=== PATIENT | female | born 2000 | race Caucasian/White ===

== ENCOUNTER 2020-04-01 03:45 | Emergency (ER) | payer MEDICAID, OTHER ==
[~2020-04-01] VITALS: Ht 154.9 cm; Wt 77.1 kg
[2020-04-01 03:55] VITALS: BP 127/65
--- NOTE | 2020-04-01 03:55 | NUR ---
TO TENT #01 AMBULATORY
--- NOTE | 2020-04-01 04:15 | NUR ---
SEEN AND EXAMINED BY GINI WITH ORDERS AND CARRIED OUT
--- NOTE | 2020-04-01 04:55 | NUR ---
SWAB DONE AND SENT TO LAB
[2020-04-01] MEDS ORDERED: KETOROLAC 60 MG/2 ML VIAL IM ONE (05:35)
[2020-04-01 05:50] VITALS: BP 127/65
== END 2020-04-01 05:50 | disposition home or self-care (01) ==
LOC: MED 03:45
DX: B34.9 Viral infection, unspecified (principal); R11.10 Vomiting, unspecified
CPT/HCPCS: 99283

== ENCOUNTER 2020-06-15 02:08 | Emergency (ER) | payer OTHER ==
[~2020-06-15] VITALS: Ht 154.9 cm; Wt 79.4 kg
[2020-06-15 02:11] VITALS: BP 142/98
--- NOTE | 2020-06-15 02:11 | NUR ---
TO BED AMBULATORY
--- NOTE | 2020-06-15 02:30 | NUR ---
SEEN AND EXAMINED BY GINI WITH ORDERS AND CARRIED OUT.
[2020-06-15] MEDS ORDERED: MORPHINE SULFATE 4 MG/ML SYR IVP ONE ×3 (02:35→04:30)
[2020-06-15] MEDS ORDERED: ONDANSETRON 4 MG/2 ML VIAL IVP ONE (02:35)
[2020-06-15] MEDS ORDERED: NACL 0.9% 1,000 ML IV ONE (02:35)
--- NOTE | 2020-06-15 02:35 | NUR ---
Blood for labwork drawn from [facility]. Patient tolerated [facility].
--- NOTE | 2020-06-15 02:36 | NUR ---
MEDICATED PER ERMDS ORDER, TOLERATED WELL.
[2020-06-15] MEDS ORDERED: PIPERACILLIN/TAZOBACTAM 3.375 GM in DEXTROSE 5% 50 ML IV ONE (02:45)
[2020-06-15 02:54] LABS: BASOPHILS % (AUTO) 0.3 % (0.0-2.0); EOSINOPHILS # (AUTO) 0.2 K/uL (0-0.4); EOSINOPHILS % (AUTO) 1.2 % (0.0-4.0); HEMATOCRIT 32.1 % (36-48); HEMOGLOBIN 10.1 g/dL (12.0-16.0); LYMPHOCYTES # (AUTO) 2.6 K/uL (2.5-16.5); LYMPHOCYTES % (AUTO) 18.3 % (20.5-51.1); MEAN CORPUSCULAR HEMOGLOBIN 20 pg (27-31); MEAN CORPUSCULAR HGB CONC 32 g/dL (33-37); MEAN CORPUSCULAR VOLUME 64.4 fL (80-94); MONOCYTES # (AUTO) 0.9 K/uL (0.8-1.0); MONOCYTES % (AUTO) 6.3 % (1.7-9.3); NEUTROPHILS # (AUTO) 10.6 K/uL (1.8-7.7); NEUTROPHILS % (AUTO) 73.9 % (42.2-75.2); PLATELET COUNT (AUTO) 219 K/uL (140-450); RED BLOOD CELL COUNT(AUTO) 4.98 MIL/uL (4.20-5.40); RED CELL DISTRIBUTION WIDTH 16.3 % (11.6-13.7); WHITE BLOOD COUNT (AUTO) 14.3 K/uL (4.8-10.8)
[2020-06-15 03:04] LABS: APPEARANCE,URINE HAZY (CLEAR); BILIRUBIN,URINE NEGATIVE (NEGATIVE); BLOOD, URINE 3+ (NEGATIVE); COLOR,URINE RED (YELLOW); LEUKOCYTE ESTERASE ,URINE TRACE (NEGATIVE); NITRITE, URINE NEGATIVE (NEGATIVE); PH,URINE 5.5 (5.0-9.0); UGLUCOSE NEGATIVE (NEGATIVE)
[2020-06-15 03:10] LABS: ALBUMIN 3.4 g/dL (3.4-5.0); ANION GAP 12.3 (8-16); CARBON DIOXIDE 24.2 mmol/L (21-32); CREATININE 0.5 mg/dL (0.6-1.3); POTASSIUM 3.5 mmol/L (3.5-5.1); TOTAL BILIRUBIN 0.4 mg/dL (0.0-1.0)
[2020-06-15] MEDS ORDERED: PIPERACILLIN/TAZOBACTAM 3.375 GM VIAL IV ONE (03:12)
[2020-06-15 03:18] LABS: RBC,URINE TOO NUMEROUS TO COUN /HPF (0-5); WBC,URINE 0-5 /HPF (0-5)
--- NOTE | 2020-06-15 03:25 | NUR ---
NASAL SWAB FOR TESSY SENT TO LAB
--- NOTE | 2020-06-15 04:30 | NUR ---
RECIVED REPORT FROM KAYCE CONTINUATION OF CARE.
--- NOTE | 2020-06-15 04:30 | NUR ---
Qasim medel in [facility] - 06/15/20 at 0717 by MEDFLDesmond GAVE REPORT TO CLIVE CACERES, TRANSFER OF CARE GIVEN.
--- NOTE | 2020-06-15 04:35 | NUR ---
PATIENT HAS C/O 01/21 PELVIC PAIN ERMD MADE AWARE AND GAVE NEW ORDERS. PATIENT REMAINS ON TAX PROCESSOR AND VSS.
--- NOTE | 2020-06-15 05:30 | NUR ---
PATIENT REPORTS PELVIC REDUCED FROM 10/10 TO 5/10 LOWER PELVIC PAIN. PATIENT REMAINS ON [employer]IST[employer] ATTORNEY. VSS. BED IS LOCKED AND IN LOWEST POSTION.
--- NOTE | 2020-06-15 05:50 | NUR ---
Patient to be transferred [place] [facility] Is being transferred due to INSURANCE. Receiving facility has accepting physician and available space. ER physician has signed transfer form. Patient or responsible alliance party has agreed to transfer and signed form. Patient belongings inventoried and will be sent with patient. Copy of nursing notes, lab reports, EKG, Physicians Orders and X-rays to be sent with patient. Report called to PRINCE CACERES at receiving facility. [facility] ambulance service has been called for transfer. ETA is [phone].
--- NOTE | 2020-06-15 07:09 | NUR ---
REPORT RECIEVED FROM MORRIS TY. TRANSFER OF CARE AT THIS TIME.
--- NOTE | 2020-06-15 07:17 | NUR ---
Qasim medel in [facility] - 06/15/20 at 0718 by CHEMA RECEIVED REPORT FROM KAYCE CACERES, TRANSFER OF CARE.
[2020-06-15] MEDS ORDERED: HYDROmorphone PFS 2 MG/ML SYR IVP ONE (07:35)
--- NOTE | 2020-06-15 07:35 | NUR ---
PT REPORTS 10/10 SHARP PELVIC PAIN AT THIS TIME, REQUESTING PAIN MANAGEMENT. ERMD MADE AWARE, ORDERS PLACED.
[2020-06-15 08:16] VITALS: BP 107/65
--- NOTE | 2020-06-15 08:16 | NUR ---
Patient to be transferred to [place]. Is being transferred due to INSURANCE REQUEST. Receiving facility has accepting physician and available space. ER physician has signed transfer form. Patient or responsible democrat has agreed to transfer and signed form. Patient belongings inventoried and will be sent with patient. Copy of nursing notes, lab reports, EKG, Physicians Orders and X-rays to be sent with patient. Report called to MORRIS MORRISON at receiving facility. Ambulance service has been called for transfer. ETA is 30min to facility.
== END 2020-06-15 08:16 | disposition designated cancer center or children's hospital (05) ==
LOC: MED 02:08
DX: O03.4 Incomplete spontaneous abortion without complication (principal); N73.9 Female pelvic inflammatory disease, unspecified; Z20.822 Contact with and (suspected) exposure to COVID-19
CPT/HCPCS: 36415; 76830; 80053; 81001; 84702; 85025; 86900; 86901; 87040; 87086; 87426; 96361; 96365; 96375; 96376; 99285; J1170; J2270; J2405; J2543; J7030